=== PATIENT | male | born 1970 ===

== ENCOUNTER 2016-05-26 08:51 | Emergency (ER) | payer OTHER ==
[2016-05-26 09:53] LABS: RBC URINE < 1 /hpf (0-3); URINE BILIRUBIN NEGATIVE (NEGATIVE); URINE BLOOD NEGATIVE (NEGATIVE); URINE COLOR Yellow (YELLOW); URINE GLUCOSE (UA) NORMAL (Normal); URINE KETONE NEGATIVE (NEGATIVE); URINE LEUKOCYTE ESTERASE NEG Leu/uL (Negative); URINE PROTEIN NEGATIVE (NEGATIVE); URINE UROBILINOGEN NORMAL mg/dL (0.2-1.0); WBC URINE 2 /hpf (0-5)
--- NOTE | 2016-05-26 10:27 | CT ---
PROCEDURE: CT Abdomen and Pelvis without intravenous contrast HISTORY: Low back pain radiating to the abdomen. COMPARISON: None. TECHNIQUE: Axial and reformatted coronal and sagittal CT images of the abdomen and pelvis were obtained without IV or oral contrast administration. This CT exam was performed using one or more of the following dose reduction techniques: Automated exposure control, adjustment of the mA and/or kV according to patient size, and/or use of iterative reconstruction technique. Contrast Dose: 0 Radiation dose: Total exam DLP = 459.4 mGy-cm. FINDINGS: LOWER THORAX: Unremarkable. LIVER: Unremarkable. No gross lesion or ductal dilatation. GALLBLADDER AND BILE DUCTS: Unremarkable. PANCREAS: Unremarkable. No gross lesion or ductal dilatation. SPLEEN: Unremarkable. ADRENALS: Unremarkable. No mass. KIDNEYS AND URETERS: Unremarkable. No hydronephrosis. No solid mass. VASCULATURE: Unremarkable. No aortic aneurysm. BOWEL: Unremarkable. No obstruction. No gross mural thickening. APPENDIX: Unremarkable. Normal appendix. PERITONEUM: Unremarkable. No free fluid. No free air. LYMPH NODES: Unremarkable. No enlarged lymph nodes. BLADDER: Unremarkable. REPRODUCTIVE: Unremarkable. BONES: No acute fracture. OTHER FINDINGS: There is a small to moderate size left inguinal hernia contains fluid and fat. IMPRESSION: No evidence of nephrolithiasis or hydronephrosis. No evidence of acute pathology in the abdomen and pelvis. Small to moderate size left inguinal hernia contains fluid and fat.
--- NOTE | 2016-05-26 10:56 | C.PDOC ---
History Of Present Illness Pt c/o low back pain Time Seen by Provider: 05/26/16 09:10 Chief Complaint (Nursing): Back Pain History Per: Patient, Family Onset/Duration Of Symptoms: Days (about 1 week) Current Symptoms Are (Timing): Still Present Quality Of Discomfort: Unable To Describe, "Pain" Severity: Moderate Associated Symptoms: None Exacerbating Factor(s): Movement, Other (Bending over) Additional History Per: Prior Records Past Medical History Reviewed: Historical Data, Nursing Documentation, Vital Signs Vital Signs: Last Vital Signs Temp 97.6 F 05/26/16 08:56 Pulse 95 H 05/26/16 08:56 Resp 18 05/26/16 08:56 BP 134/78 05/26/16 08:56 Pulse Ox 95 05/26/16 08:56 - Medical History PMH: No Chronic Diseases Surgical History: No Surg Hx Family History: States: Unknown Family Hx - Social History Hx Alcohol Use: No Hx Substance Use: No - Immunization History Hx Tetanus Toxoid Vaccination: No Hx Influenza Vaccination: No Hx Pneumococcal Vaccination: No Review Of Systems Except As Marked, All Systems Reviewed And Found Negative. Constitutional: Negative for: Fever, Weakness Cardiovascular: Negative for: Chest Pain Respiratory: Negative for: Shortness of Breath Gastrointestinal: Positive for: Abdominal Pain (lower). Negative for: Vomiting , Diarrhea Genitourinary: Negative for: Dysuria, Incontinence, Scrotal Pain Musculoskeletal: Positive for: Back Pain (low). Negative for: Neck Pain, Leg Pain Skin: Negative for: Rash Neurological: Negative for: Weakness, Numbness, Seizures, Altered Mental Status Physical Exam - Physical Exam Appears: Non-toxic, No Acute Distress Skin: Normal Color, Warm, Dry, No Rash Head: Atraumatic, Normacephalic Eye(s): bilateral: PERRL, EOMI Neck: Normal ROM, Supple Cardiovascular: Rhythm Regular Respiratory: Normal Breath Sounds, No Accessory Muscle Use Gastrointestinal/Abdominal: Soft, No Tenderness Back: No CVA Tenderness, Paraspinal Tenderness (low) Extremity: Normal ROM Neurological/Psych: Oriented x3, Normal Motor, Normal Sensation ED Course And Treatment O2 Sat by Pulse Oximetry: 95 Pulse Ox Interpretation: Normal - CT Scan/US CT abd/pelv Other Rad Studies (CT/US): Read By Radiologist, Radiology Report Reviewed CT/US Interpretation: IMPRESSION: No evidence of nephrolithiasis or hydronephrosis. No evidence of acute pathology in the abdomen and pelvis. Small to moderate size left inguinal hernia contains fluid and fat. Reassessment Condition: Improved Disposition Counseled Patient/Family Regarding: Studies Performed, Diagnosis, Need For Followup - Disposition Referrals: Olivia Thakkar MD [Medical Doctor] - Adolfo Roche MD [Staff Provider] - [facility] [Outside] Disposition: HOME/ ROUTINE Disposition Time: 10:57 Condition: IMPROVED Additional Instructions: Follow up with your doctor or in the clinic for further evaluation and treatment. Follow up with a General Surgeon for your hernia. Return to the ER if you develop vomiting, weakness, numbness, trouble urinating, worsening of symptoms or if you have any other concerns. Instructions: Inguinal Hernia (ED), Acute Low Back Pain (ED) Print Language: FINNISH - Clinical Impression Clinical Impression: Low back pain, Left inguinal hernia
[2016-05-26 11:06] VITALS: BP 128/78; PULSE 78; RESP 17; TEMP 98.1; O2SAT 96
== END 2016-05-26 11:08 | disposition home or self-care (01) ==
LOC: C.ER 08:51
DX: M54.5 Low back pain (principal); K40.90 Unilateral inguinal hernia, without obstruction or gangrene, not specified as recurrent
CPT/HCPCS: 74176; 81001; 96372; 99284; J1885